=== PATIENT | male | born 1980 | race Two or more races ===

== ENCOUNTER 2021-08-26 10:19 | Emergency (ER) | payer OTHER ==
[~2021-08-26] VITALS: Ht 152.4 cm; Wt 79.4 kg
[2021-08-26 11:52] VITALS: BP 139/90
== END 2021-08-26 12:50 | disposition home or self-care (01) ==
LOC: ER 10:19
DX: S61.531A Puncture wound without foreign body of right wrist, initial encounter (principal); W18.09XA Striking against other object with subsequent fall, initial encounter; Y93.89 Activity, other specified; Y92.89 Other specified places as the place of occurrence of the external cause; Y99.8 Other external cause status
CPT/HCPCS: 29125; 73110